=== PATIENT | female | born 1955 | race Caucasian/White ===

== ENCOUNTER → 2016-04-01 | Outpatient (REF) | payer OTHER | LOC: M SFHCWAGY 15:31 | PROVIDERS: ATTEND Nurse Practitioner Family | DX: R30.0 Dysuria (principal) ==

== ENCOUNTER → 2016-04-04 | Outpatient (CLI) | payer OTHER ==
--- NOTE | 2016-04-05 07:27 | REP ---
Clinical: Pelvic pain and dysuria . Technique: Transabdominal pelvic ultrasound followed by transvaginal examination for better evaluation of the endometrium and adnexa with color Doppler evaluation of the ovaries. Findings: Bladder is unremarkable and measures 10.3 x 6.3 x 3.9 cm . Heterogeneous anteverted uterus measures 6.1 x 2.6 x 4.8 cm . The endometrial complex measures 2.7 mm thickness. An anterior subserosal fibroid is identified measuring 1.5 cm maximal diameter and a posterior submucosal fibroid is identified measuring 2.4 cm maximal diameter. The ovaries are not definitively identified. However no pelvic fluid or adnexal mass lesions are appreciated. Impression: 1. Heterogeneous anteverted uterus with two fibroids as described above. 2. Ovaries are not definitively identified. No pelvic fluid or adnexal mass lesion noted.
--- NOTE | 2016-04-05 07:28 | REP ---
Clinical: Dysuria. Technique: Real time springer scale ultrasound examination of the bladder using curved array transducer. Findings: Bladder is grossly normal in appearance without obvious wall thickening or mass lesion. Prevoid bladder measures 10.1 x 5.1 x 5.2 cm (140 ml). Postvoid bladder measures 6.0 x 1.7 x 3.7 cm (20 ml) Postvoid residual equals 14% Impression: Normal appearance of the bladder. Postvoid residual equals 14% by current exam.
== END ==
LOC: M WHC 11:33
PROVIDERS: ATTEND Nurse Practitioner Family
DX: R30.0 Dysuria (principal)

== ENCOUNTER → 2016-11-02 | Outpatient (REF) | payer OTHER ==
[2016-11-02 12:48] LABS: ALBUMIN 3.9 GM/DL (3.2-5.2); ALKALINE PHOSPHATASE 46 U/L (45-117); ALT/SGPT 33 U/L (12-78); ANION GAP 8 MEQ/L (8-16); AST/SGOT 20 U/L (15-37); BILIRUBIN,TOTAL 0.5 MG/DL (0.2-1.0); BLOOD UREA NITROGEN 13 MG/DL (7-18); CALCIUM LEVEL 8.8 MG/DL (8.8-10.2); CARBON DIOXIDE LEVEL 30 MEQ/L (21-32); CHLORIDE LEVEL 106 MEQ/L (98-107); CHOLESTEROL LEVEL 224 MG/DL (<200); CREATININE FOR GFR 0.71 MG/DL (0.55-1.02); GLOMERULAR FILTRATION RATE > 60.0 (>45); GLUCOSE, FASTING 93 MG/DL (80-110); POTASSIUM SERUM 4.1 MEQ/L (3.5-5.1); SODIUM LEVEL 144 MEQ/L (136-145); TOTAL PROTEIN 6.9 GM/DL (6.4-8.2); TRIGLYCERIDES LEVEL 104 MG/DL (<150)
[2016-11-02 13:26] LABS: MEAN CORPUSCULAR HEMOGLOBIN 29.9 pg (27.0-33.0); MEAN CORPUSCULAR HGB CONC 33.4 g/dl (32.0-36.5); MEAN CORPUSCULAR VOLUME 89.5 fl (80.0-96.0); RED CELL DISTRIBUTION WIDTH 12.3 % (11.5-14.5); WHITE BLOOD COUNT 4.5 K/mm3 (4.0-10.0)
== END ==
LOC: M SFHCPLAZ 08:57
PROVIDERS: ATTEND Family Medicine
DX: Z00.00 Encounter for general adult medical examination without abnormal findings (principal)

== ENCOUNTER → 2016-11-02 | Outpatient (CLI) | payer OTHER ==
--- NOTE | 2016-11-02 09:20 | REPMRS ---
Patient History The patient states she had a clinical breast exam in 10/2016. Patient is postmenopausal. Family history of breast cancer in mother at age 69. Taking estrogen for 5 years. Digital Woman Screen Mammo: November 02, 2016 - Exam #: [id number] Bilateral CC and MLO view(s) were taken. Technologist: Loreta Brown, Technologist Prior study comparison: September 09, 2015, digital woman screen mammo performed at [facility]. 2013, digital bilateral screening mammo, performed at [facility]. FINDINGS: The breast tissue is heterogeneously dense. This may lower the sensitivity of mammography. There has been no change in the appearance of the mammogram from the prior studies. There is a moderate amount of residual fibroglandular tissue which is fairly symmetric. There is no interval development of dominant mass, areas of architectural distortion, or clustered microcalcification typical of malignancy. ASSESSMENT: BI-RADS/ACR category 1 mammogram. Negative. Recommendation Routine screening mammogram in 1 year (for women over age 40). This mammogram was interpreted with the aid of an FDA-approved computer-aided dectection system. Electronically Signed By: Kike Hernandes MD 11/02/16 [id number]
== END ==
LOC: M WHC 08:08
PROVIDERS: ATTEND Nurse Practitioner Women's Health
DX: Z12.31 Encounter for screening mammogram for malignant neoplasm of breast (principal)

== ENCOUNTER → 2017-03-22 | Outpatient (REF) | payer OTHER ==
[2017-03-22 15:35] LABS: BASO % 0.5 % (0.0-1.0); EOS # 0.1 10^3/uL (0.0-0.50); EOS % 1.5 % (0.0-3.0); HEMATOCRIT 37.9 % (36.0-47.0); HEMOGLOBIN 12.1 g/dl (12.0-16.0); IMMATURE GRANULOCYTE % 0.3 % (0-3.0); LYMPH # 0.5 10^3/uL (1.5-4.5); LYMPH % 8.8 % (24.0-44.0); MEAN CORPUSCULAR HEMOGLOBIN 28.9 pg (27.0-33.0); MEAN CORPUSCULAR HGB CONC 31.9 g/dl (32.0-36.5); MEAN CORPUSCULAR VOLUME 90.7 fl (80.0-96.0); MONO # 0.6 10^3/uL (0.0-0.8); NEUTROPHILS # 4.9 10^3/uL (1.8-7.7); NEUTROPHILS % 79.9 % (36.0-66.0); PLATELET COUNT, AUTOMATED 212 10^3/uL (150-450); RED BLOOD COUNT 4.18 10^6/uL (4.00-5.40); RED CELL DISTRIBUTION WIDTH 12.4 % (11.5-14.5); WHITE BLOOD COUNT 6.1 10^3/uL (4.0-10.0)
== END ==
LOC: M SFHCPLAZ 12:23
DX: J06.9 Acute upper respiratory infection, unspecified (principal)

== ENCOUNTER → 2017-10-20 | Outpatient (REF) | payer OTHER | LOC: M SFHCPLAZ 09:26 | DX: Z13.1 Encounter for screening for diabetes mellitus (principal); Z13.220 Encounter for screening for lipoid disorders ==

== ENCOUNTER → 2017-11-03 | Outpatient (REF) | payer OTHER ==
[2017-11-03 13:51] LABS: ANION GAP 11 MEQ/L (8-16); BLOOD UREA NITROGEN 13 MG/DL (7-18); CALCIUM LEVEL 8.8 MG/DL (8.8-10.2); CARBON DIOXIDE LEVEL 26 MEQ/L (21-32); CHLORIDE LEVEL 105 MEQ/L (98-107); CHOLESTEROL LEVEL 238 MG/DL (<200); CHOLESTEROL RISK RATIO 4.327 (<5); CREATININE FOR GFR 0.84 MG/DL (0.55-1.30); GLOMERULAR FILTRATION RATE > 60.0 (>45); GLUCOSE, FASTING 97 MG/DL (70-100); HDL CHOLESTEROL 55 MG/DL (>40); LDL CHOLESTEROL 166 MG/DL (<100); NON-HDL-C 183 MG/DL; SODIUM LEVEL 142 MEQ/L (136-145); TRIGLYCERIDES LEVEL 83 MG/DL (<150)
[2017-11-03 14:42] LABS: ESTIMATED AVERAGE GLUCOSE 120 MG/DL (60-110); HEMOGLOBIN A1c 5.8 %
== END ==
LOC: M LABDRAW1 09:40
DX: Z13.1 Encounter for screening for diabetes mellitus (principal); Z13.220 Encounter for screening for lipoid disorders

== ENCOUNTER → 2018-03-21 | Outpatient (CLI) | payer OTHER ==
--- NOTE | 2018-03-21 11:12 | REPMRS ---
Patient History The patient states she had a clinical breast exam in 02/2018. Patient is postmenopausal. Family history of breast cancer at age 69 in mother, pancreatic cancer at age 50 or over in maternal grandmother. Taking estrogen for 6 years 6 months. Digital Woman Screen Mammo: March 21, 2018 - Exam #: [id number] Bilateral CC and MLO view(s) were taken. Technologist: Loreta Brown, Technologist Prior study comparison: November 02, 2016, digital woman screen mammo performed at [facility]. September 09, 2015, digital woman screen mammo performed at [facility]. August 05, 2014, bilateral digital woman screen mammo, performed at [facility]. FINDINGS: The breast tissue is heterogeneously dense. This may lower the sensitivity of mammography. There is a moderate amount of heterogeneously dense fibroglandular tissue which is fairly symmetric. There is no interval development of dominant mass, architectural distortion, or clustered microcalcification typical of malignancy. There has been no change in the appearance of the mammogram from the prior studies. 3-D tomosynthesis shows no additional findings. Assessment: BI-RADS/ACR category 1 mammogram. Negative Mammogram. Recommendation Routine screening mammogram of both breasts in 1 year (for women over age 40). This patient's Lifetime Breast Cancer RIsk is estimated at 16.2 %. This mammogram was interpreted with the aid of an FDA-approved computer-aided dectection system. Electronically Signed By: Bob Hutchison MD 03/21/18 [id number]
== END ==
LOC: M WHC 08:08
PROVIDERS: ATTEND Nurse Practitioner Women's Health
DX: Z12.31 Encounter for screening mammogram for malignant neoplasm of breast (principal)

== ENCOUNTER → 2018-04-23 | Outpatient (REF) | payer OTHER | LOC: M SFHCWAGY 08:51 | PROVIDERS: ATTEND Nurse Practitioner Women's Health | DX: Z12.4 Encounter for screening for malignant neoplasm of cervix (principal) ==

== ENCOUNTER → 2019-03-14 | Outpatient (REF) | payer OTHER ==
[2019-03-14 10:43] LABS: BASO % 0.8 % (0.0-1.0); EOS # 0.2 10^3/uL (0.0-0.5); EOS % 5.1 % (0.0-3.0); HEMOGLOBIN 12.3 g/dl (12.0-15.5); LYMPH # 1.4 10^3/uL (1.5-5.0); LYMPH % 36.8 % (24.0-44.0); MEAN CORPUSCULAR HEMOGLOBIN 29.2 pg (27.0-33.0); MEAN CORPUSCULAR HGB CONC 30.8 g/dl (32.0-36.5); MONO # 0.4 10^3/uL (0.0-0.8); MONO % 9.8 % (0.0-5.0); NEUTROPHILS # 1.8 10^3/uL (1.5-8.5); NEUTROPHILS % 47.2 % (36.0-66.0); PLATELET COUNT, AUTOMATED 248 10^3/uL (150-450); RED BLOOD COUNT 4.21 10^6/uL (4.00-5.40); WHITE BLOOD COUNT 3.9 10^3/uL (4.0-10.0)
[2019-03-14 10:48] LABS: ALBUMIN 3.8 GM/DL (3.2-5.2); ALT/SGPT 27 U/L (12-78); BILIRUBIN,TOTAL 0.4 MG/DL (0.2-1.0); BLOOD UREA NITROGEN 14 MG/DL (7-18); CALCIUM LEVEL 9.1 MG/DL (8.8-10.2); CARBON DIOXIDE LEVEL 32 MEQ/L (21-32); CHLORIDE LEVEL 105 MEQ/L (98-107); CHOLESTEROL LEVEL 248 MG/DL (<200); CHOLESTEROL RISK RATIO 4.769 (<5); CREATININE FOR GFR 0.73 MG/DL (0.55-1.30); FREE T4 0.86 NG/DL (0.76-1.46); GLOMERULAR FILTRATION RATE > 60.0 (>45); GLUCOSE, FASTING 99 MG/DL (70-100); HDL CHOLESTEROL 52 MG/DL (>40); LDL CHOLESTEROL 176 MG/DL (<100); NON-HDL-C 196 MG/DL; POTASSIUM SERUM 4.2 MEQ/L (3.5-5.1); SODIUM LEVEL 141 MEQ/L (136-145); TRIGLYCERIDES LEVEL 102 MG/DL (<150)
[2019-03-14 11:05] LABS: HEMOGLOBIN A1c 6.2 %
[2019-03-14 11:44] LABS: APPEARANCE, URINE CLEAR (CLEAR); BACTERIA, URINE AUTO NEGATIVE (NEGATIVE); BILIRUBIN, URINE AUTO NEGATIVE (NEGATIVE); BLOOD, URINE BLOOD NEGATIVE (NEGATIVE); COLOR, URINE YELLOW (YELLOW); GLUCOSE, URINE (UA) AUTO NEGATIVE (NEGATIVE); KETONE, URINE AUTO NEGATIVE (NEGATIVE); LEUKOCYTE ESTERASE, URINE AUTO NEGATIVE (NEGATIVE); MUCUS, URINE SMALL (NEGATIVE); NITRITE, URINE AUTO NEGATIVE (NEGATIVE); PROTEIN, URINE AUTO NEGATIVE (NEGATIVE); RBC, URINE AUTO 1 /HPF (0-3); SPECIFIC GRAVITY URINE AUTO 1.016 (1.002-1.035); SQUAMOUS EPITHELIAL CELL UR AU 0 /HPF (0-6); UROBILINOGEN, URINE AUTO 0.2 mg/dL (0.0-2.0); WBC, URINE AUTO 3 /HPF (0-3)
== END ==
LOC: M SFHCPLAZ 07:43
PROVIDERS: ATTEND Physician Assistant
DX: Z00.00 Encounter for general adult medical examination without abnormal findings (principal); Z13.29 Encounter for screening for other suspected endocrine disorder; R73.01 Impaired fasting glucose; Z13.220 Encounter for screening for lipoid disorders; R30.0 Dysuria

== ENCOUNTER → 2019-04-24 | Outpatient (CLI) | payer OTHER ==
--- NOTE | 2019-04-24 14:24 | REPMRS ---
Patient History The patient states she had a clinical breast exam in April 2019. Family history of breast cancer at age 69 in mother, pancreatic cancer at age 50 or over in maternal grandmother. Taking estrogen for 6 years 6 months. Digital Woman Screen Mammo: April 24, 2019 - Exam #: [id number] Bilateral CC and MLO view(s) were taken. Technologist: RT Randee Prior study comparison: March 21, 2018, bilateral digital woman screen mammo performed at [facility]. November 02, 2016, digital woman screen mammo performed at [facility]. September 09, 2015, digital woman screen mammo performed at [facility]. FINDINGS: The breast tissue is heterogeneously dense. This may lower the sensitivity of mammography. There is a moderate amount of heterogeneously dense fibroglandular tissue which is fairly symmetric. There is no interval development of dominant mass, architectural distortion, or grouped microcalcification typical of malignancy. There has been no change in the appearance of the mammogram from the prior studies. 3-D tomosynthesis shows no additional findings. Assessment: BI-RADS/ACR category 1 mammogram. Negative Mammogram. Recommendation Routine screening mammogram of both breasts in 1 year (for women over age 40). This patient's Lifetime Breast Cancer RIsk is estimated at 15.6 %. This mammogram was interpreted with the aid of an FDA-approved computer-aided dectection system. Electronically Signed By: Bob Hutchison MD 04/24/19 [id number]
== END ==
LOC: M WHC 11:08
PROVIDERS: ATTEND Nurse Practitioner Women's Health
DX: Z12.31 Encounter for screening mammogram for malignant neoplasm of breast (principal); Z80.3 Family history of malignant neoplasm of breast; Z79.899 Other long term (current) drug therapy

== ENCOUNTER → 2019-04-24 | Outpatient (CLI) | payer OTHER | LOC: M PLALAB 12:10 | PROVIDERS: ATTEND Nurse Practitioner Women's Health | DX: Z13.79 Encounter for other screening for genetic and chromosomal anomalies (principal); Z12.4 Encounter for screening for malignant neoplasm of cervix ==

== ENCOUNTER → 2019-07-11 | Outpatient (CLI) | payer OTHER ==
--- NOTE | 2019-07-11 20:50 | REP ---
Clinical: Diffuse abdominal pain. Technique: Real time springer scale ultrasound examination using curved array transducer. Findings: Liver, spleen, and pancreas are normal in contour, size, echogenicity without focal splenic, hepatic, or pancreatic lesion identified. The patient is known to be status post cholecystectomy. No intrahepatic biliary ductal dilatation is appreciated and the common bile duct measures 9 mm diameter. Bilateral kidneys are normal in reniform shape without hydronephrosis. Right kidney measures 9.6 x 4.2 x 4.3 cm. Left kidney measures 9.5 x 4.2 x 5.5 cm. Abdominal aorta appears normal and measures 2.0 cm maximal diameter. No ascites. Impression: 1. Prior cholecystectomy. 2. Normal complete abdominal ultrasound. Electronically Signed by Sebastian Gray MD 07/11/2019 08:41 P
== END ==
LOC: M RAD 08:22
PROVIDERS: ATTEND Physician Assistant
DX: R10.9 Unspecified abdominal pain (principal)

== ENCOUNTER 2019-08-02 14:19 | Emergency (ER) | payer OTHER ==
[~2019-08-02] VITALS: Ht 162.6 cm; Wt 66.7 kg
[2019-08-02] MEDS ORDERED: GI COCKTAIL 50ML BTL(HYOSCYAMINE/MAALOX/LIDOCAINE VISCOUS)(1:3:1) PO ONE (15:00)
[2019-08-02] MEDS ORDERED: DICYCLOMINE INJ 20MG/2ML (J0500) IM ONE (15:00)
[2019-08-02 15:15] LABS: BASO % 0.4 % (0.0-1.0); EOS # 0.1 10^3/uL (0.0-0.5); EOS % 1.9 % (0.0-3.0); HEMATOCRIT 36.7 % (36.0-47.0); LYMPH # 1.6 10^3/uL (1.5-5.0); LYMPH % 27.2 % (24.0-44.0); MEAN CORPUSCULAR HEMOGLOBIN 30.2 pg (27.0-33.0); MEAN CORPUSCULAR HGB CONC 32.7 g/dl (32.0-36.5); MEAN CORPUSCULAR VOLUME 92.4 fl (80.0-96.0); MONO # 0.4 10^3/uL (0.0-0.8); NEUTROPHILS # 3.6 10^3/uL (1.5-8.5); NEUTROPHILS % 63.3 % (36.0-66.0); PLATELET COUNT, AUTOMATED 227 10^3/uL (150-450); RED BLOOD COUNT 3.97 10^6/uL (4.00-5.40); WHITE BLOOD COUNT 5.7 10^3/uL (4.0-10.0)
[2019-08-02 15:35] LABS: BLOOD UREA NITROGEN 13 MG/DL (7-18); CALCIUM LEVEL 9.5 MG/DL (8.8-10.2); CARBON DIOXIDE LEVEL 29 MEQ/L (21-32); CHLORIDE LEVEL 104 MEQ/L (98-107); CREATININE FOR GFR 0.77 MG/DL (0.55-1.30); GLOMERULAR FILTRATION RATE > 60.0 (>45); GLUCOSE, FASTING 94 MG/DL (70-100); POTASSIUM SERUM 3.6 MEQ/L (3.5-5.1); SODIUM LEVEL 137 MEQ/L (136-145)
[2019-08-02 15:39] LABS: ALBUMIN 4.1 GM/DL (3.2-5.2); BILIRUBIN,DIRECT 0.1 MG/DL (0.0-0.2); BILIRUBIN,TOTAL 0.6 MG/DL (0.2-1.0); TOTAL PROTEIN 7.8 GM/DL (6.4-8.2)
--- NOTE | 2019-08-02 15:41 | REP ---
Portable chest x-ray: Single view. History: Chest pain. Comparison study: February 11, 2013. Findings: The lungs are symmetrically aerated and clear. EKG monitoring electrodes are seen. Surgical clips are noted right upper quadrant. Pleural angles are sharp. Very vasculature is not increased. Impression: No active disease. Electronically Signed by Wellington Hutchison MD 08/02/2019 03:33 P
[2019-08-02] MEDS: GASTROGRAFIN SOLUTION 30ML PO SCH ×2 (16:15→16:53)
[2019-08-02] MEDS ORDERED: ISOVUE-370 76% 100ML VIAL As Ordered ONE (16:59)
[2019-08-02] MEDS ORDERED: FLUO10CA16 (18:08)
[2019-08-02] MEDS ORDERED: OMEP-357 (18:08)
--- NOTE | 2019-08-02 18:10 | REPVR ---
PROCEDURE INFORMATION: Exam: CT Abdomen And Pelvis With Contrast Exam date and time: 08/02/2019 5:03 PM Age: 63 years old Clinical indication: Abdominal pain; Localized; Upper; Additional info: Upper abdominal pain; Colitis vs hiatal hernia TECHNIQUE: Imaging protocol: Computed tomography of the abdomen and pelvis with intravenous contrast. Radiation optimization: All CT scans at this facility use at least one of these dose optimization techniques: automated exposure control; mA and/or kV adjustment per patient size (includes targeted exams where dose is matched to clinical indication); or iterative reconstruction. Contrast material: ISOVUE 370; Contrast volume: 100 ml; Contrast route: INTRAVENOUS (IV); COMPARISON: BLADDER (LIMITED PELVIC) US 04/04/2016 1:25 PM FINDINGS: Mediastinal space: No hiatal hernia identified. Liver: There is hepatic steatosis. No focal hepatic lesion. Gallbladder and bile ducts: Status post cholecystectomy. The common bile duct is dilated measuring up to 11 mm. No obstructive calculus or lesion identified. No intrahepatic biliary ductal dilatation. Pancreas: The pancreas is normal. The pancreas is normal. Spleen: The spleen is normal. Adrenals: The adrenals are normal. Kidneys and ureters: The kidneys are normal.No hydronephrosis. Stomach and bowel: There is no bowel wall thickening. There is no bowel distension. No diverticula. Appendix: The appendix is well visualized and is normal. Intraperitoneal space: No free fluid or fluid collection. No free air. Vasculature: Unremarkable. No abdominal aortic aneurysm. Lymph nodes: Unremarkable. No enlarged lymph nodes. Bladder: The bladder is normal with no evidence of calculi. Reproductive: The uterus and adnexa are within normal limits. Bones/joints: Degenerative changes of the lumbar spine most advanced at L5-S1. No fracture. No focal osseous lesion. Soft tissues: Unremarkable. IMPRESSION: 1. Status post cholecystectomy with mild dilation of the common bile duct, 11 mm. No obstructive calculus or lesion. This is not unusual following cholecystectomy. 2. No acute inflammatory findings. Electronically signed by: Barrington Regan On 08/02/2019 18:10:22 PM
[2019-08-02 18:15] VITALS: BP 125/70
--- NOTE | 2019-08-03 08:04 | ECGEPIP ---
[facility] - ED Test Date: 2019-08-02 Pat Name: MARK CHAVEZ Department: Room: - Gender: Female Grinder Hand: : 1955 Requested By: Laura Scott Order Number: [id number] Reading MD: Laura Scott Measurements Intervals [place] Rate: 61 P: 41 IL: 168 QRS: -25 QRSD: 76 T: -3 QT: 396 QTc: 399 Interpretive Statements SINUS RHYTHM BORDERLINE LEFT AXIS DEVIATION ST DEVIATION AND MODERATE T-WAVE ABNORMALITY, CONSIDER ISCHEMIA NO PRIOR Electronically Signed on 08-03-2019 8:04:44 EDT by Laura Scott
--- NOTE | 2019-08-05 08:09 | ED PDOC ---
Post-Departure Follow-Up dr nolasco, dr white, judith andrew faxed fomral report of ct abd/p fo rfu Daniel Voss MD Aug 05, 2019 08:09
[2019-11-27] MEDS ORDERED: LEXA5TAB13 (11:12)
[2019-11-27] MEDS ORDERED: MULTCAP PO (11:18)
[2019-11-27] MEDS ORDERED: OXYC-1 PO (11:18)
[2019-11-27] MEDS ORDERED: PREV15TA2 PO (11:18)
== END 2019-08-02 18:40 | disposition home or self-care (01) ==
LOC: M ED 14:19
DX: R10.13 Epigastric pain (principal); Z88.2 Allergy status to sulfonamides; Z88.1 Allergy status to other antibiotic agents
CPT/HCPCS: 71045; 74177; 80048; 80076; 83690; 85025; 93005; 93041; 94760; 96372; 99285; J0500; Q9963; Q9967

== ENCOUNTER → 2019-11-28 | Outpatient (CLI) | payer OTHER ==
[~2019-11-28] MED LIST: FLUO10CA16; LEXA5TAB13; MULTCAP PO; OMEP-357; OXYC-1 PO; PREV15TA2 PO
== END ==
LOC: M LABSMTC 11:56
PROVIDERS: ATTEND Anesthesiology
DX: Z01.812 Encounter for preprocedural laboratory examination (principal); Z20.828 Contact with and (suspected) exposure to other viral communicable diseases
CPT/HCPCS: C9803; U0003

== ENCOUNTER 2019-12-03 10:19 | Day surgery (SDC) | payer OTHER ==
[~2019-12-03] VITALS: Ht 162.6 cm; Wt 65.7 kg
[~2019-12-03 10:19] MED LIST changes: +NS 1,000 ML IV ONE
[2019-12-03] MEDS ORDERED: propofoL 500 MG/50 ML VIAL As Ordered ONE (11:07)
[2019-12-03] MEDS ORDERED: LIDOCAINE 2% 100MG/5ML SDV (FOR ANES.) As Ordered ONE (11:07)
[2019-12-03] MEDS ORDERED: fentaNYL 100 MCG/2 ML INJECTION (J3010) As Ordered ONE (11:20)
--- NOTE | 2019-12-03 12:10 | ROOR ---
Patient Name: Shira Reagan Procedure Date: 12/03/2019 11:56 AM Date of : 1955 Age: 64 Room: [facility] Gender: Female Note Status: Finalized Procedure: Upper GI endoscopy Indications: Functional Dyspepsia, Heartburn Providers: Donaldo Shelton MD Referring MD: Eloisa Harvey Requesting Provider: Medicines: Monitored Anesthesia Care Complications: No immediate complications. Procedure: Pre-Anesthesia Assessment: - Prior to the procedure, a History and Physical was performed, and patient medications and allergies were reviewed. The patient is competent. The risks and benefits of the procedure and the sedation options and risks were discussed with the patient. All questions were answered and informed consent was obtained. Patient identification and proposed procedure were verified by the physician, the nurse and the anesthesiologist in the procedure room. Mental Status Examination: alert and oriented. Airway Examination: normal oropharyngeal airway and neck mobility. Respiratory Examination: clear to auscultation. CV Examination: normal. Prophylactic Antibiotics: The patient does not require prophylactic antibiotics. Prior Anticoagulants: The patient has taken no previous anticoagulant or antiplatelet agents. ASA Grade Assessment: II - A patient with mild systemic disease. After reviewing the risks and benefits, the patient was deemed in satisfactory condition to undergo the procedure. The anesthesia plan was to use monitored anesthesia care (MAC). Immediately prior to administration of medications, the patient was re-assessed for adequacy to receive sedatives. The heart rate, respiratory rate, oxygen saturations, blood pressure, adequacy of pulmonary ventilation, and response to care were monitored throughout the procedure. The physical status of the patient was re-assessed after the procedure. The Endoscope was introduced through the mouth, and advanced to the second part of duodenum. The upper GI endoscopy was accomplished without difficulty. The patient tolerated the procedure well. Findings: The examined esophagus was normal. The Z-line was regular and was found 36 cm from the incisors. Scattered mild inflammation characterized by erythema, friability and granularity was found in the gastric antrum. Biopsies were taken with a cold forceps for Helicobacter pylori testing. Verification of patient identification for the specimen was done by the physician and nurse using the patient's name, date and medical record number. Estimated blood loss was minimal. The duodenal bulb and second portion of the duodenum were normal. Biopsies for histology were taken with a cold forceps for evaluation of celiac disease. Impression: - Normal esophagus. - Z-line regular, 36 cm from the incisors. - Gastritis. Biopsied. - Normal duodenal bulb and second portion of the duodenum. Biopsied. Recommendation: - Patient has a contact number available for emergencies. The signs and symptoms of potential delayed complications were discussed with the patient. Return to normal activities tomorrow. Written discharge instructions were provided to the patient. - High fiber diet. - Continue present medications. - Await pathology results. - Follow an antireflux regimen. - Telephone GI clinic for pathology results in 2 weeks. - Return to primary care physician. Donaldo Shelton MD Donaldo Shelton MD 12/03/2019 12:10:16 PM Electronically signed by Donaldo Shelton MD Number of Addenda: 0 Note Initiated On: 12/03/2019 11:56 AM Estimated Blood Loss: Estimated blood loss: none.
[2019-12-03] MEDS ORDERED: ELEVIEW SUBMUCOSAL INJ 10ML AMP As Ordered ONE ×2 (12:22→12:52)
[2019-12-03 13:15] VITALS: BP 123/65
--- NOTE | 2019-12-03 14:06 | ROOR ---
Patient Name: Shira Reagan Procedure Date: 12/03/2019 11:58 AM Date of : 1955 Age: 64 Room: [facility] Gender: Female Note Status: Finalized Procedure: Colonoscopy Indications: Screening for colorectal malignant neoplasm Providers: Donaldo Shelton MD Referring MD: Eloisa Harvey Requesting Provider: Medicines: Monitored Anesthesia Care Complications: No immediate complications. Procedure: Pre-Anesthesia Assessment: - Prior to the procedure, a History and Physical was performed, and patient medications and allergies were reviewed. The patient is competent. The risks and benefits of the procedure and the sedation options and risks were discussed with the patient. All questions were answered and informed consent was obtained. Patient identification and proposed procedure were verified by the physician and the nurse in the procedure room. Mental Status Examination: alert and oriented. Airway Examination: normal oropharyngeal airway and neck mobility. Respiratory Examination: clear to auscultation. CV Examination: normal. Prophylactic Antibiotics: The patient does not require prophylactic antibiotics. Prior Anticoagulants: The patient has taken no previous anticoagulant or antiplatelet agents. ASA Grade Assessment: II - A patient with mild systemic disease. After reviewing the risks and benefits, the patient was deemed in satisfactory condition to undergo the procedure. The anesthesia plan was to use monitored anesthesia care (MAC). Immediately prior to administration of medications, the patient was re-assessed for adequacy to receive sedatives. The heart rate, respiratory rate, oxygen saturations, blood pressure, adequacy of pulmonary ventilation, and response to care were monitored throughout the procedure. The physical status of the patient was re-assessed after the procedure. The Colonoscope was introduced through the anus and advanced to the terminal ileum, with identification of the appendiceal orifice and IC valve. The colonoscopy was performed without difficulty. The patient tolerated the procedure well. The quality of the bowel preparation was good. The terminal ileum, ileocecal valve, appendiceal orifice, and rectum were photographed. Scope insertion time was 3 minutes. Scope withdrawal time was 15 minutes. The total duration of the procedure was 25 minutes. Findings: The perianal and digital rectal examinations were normal. The terminal ileum appeared normal. Two carpet-like, flat and sessile polyps were found in the ascending colon and cecum. The polyps were 10 to 20 mm in size. Preparations were made for mucosal resection. Chromoscopy with methylene blue was done to gwen the borders of the lesion. 6 mL of Eleview was injected with partial lift of the lesion from the muscularis propria. Snare mucosal resection with suction (via the working channel) retrieval was performed. A 30 mm area was resected. Resection and retrieval were complete. There was no bleeding at the end of the procedure. To close a defect after mucosal resection, three hemostatic clips were successfully placed. There was no bleeding at the end of the procedure. Two sessile polyps were found in the descending colon and transverse colon. The polyps were 4 to 5 mm in size. These polyps were removed with a cold snare. Resection and retrieval were complete. Verification of patient identification for the specimen was done by the physician and nurse using the patient's name, date and medical record number. Estimated blood loss was minimal. Non-bleeding external and internal hemorrhoids were found during retroflexion. The hemorrhoids were medium-sized. Impression: - The examined portion of the ileum was normal. - Two 10 to 20 mm polyps in the ascending colon and in the cecum, removed with mucosal resection. Resected and retrieved. Clips were placed. - Two 4 to 5 mm polyps in the descending colon and in the transverse colon, removed with a cold snare. Resected and retrieved. - Non-bleeding external and internal hemorrhoids. - Mucosal resection was performed. Resection and retrieval were complete. Recommendation: - Patient has a contact number available for emergencies. The signs and symptoms of potential delayed complications were discussed with the patient. Return to normal activities tomorrow. Written discharge instructions were provided to the patient. - Clear liquid diet for 1 day, then advance as tolerated to high fiber diet. - Continue present medications. - Miralax 1 capful (17 grams) in 8 ounces of water PO daily for 3 days. - Await pathology results. - Repeat colonoscopy in 1 year for surveillance based on pathology results. - Telephone GI clinic for pathology results in 2 weeks. - Return to primary care physician. Donaldo Shelton MD Donaldo Shelton MD 12/03/2019 2:05:35 PM Electronically signed by Donaldo Shelton MD Number of Addenda: 0 Note Initiated On: 12/03/2019 11:58 AM Estimated Blood Loss: Estimated blood loss was minimal.
== END 2019-12-03 13:28 | disposition home or self-care (01) ==
LOC: M OPP 10:19
PROVIDERS: ATTEND Internal Medicine Gastroenterology
DX: Z12.11 Encounter for screening for malignant neoplasm of colon (principal); K63.5 Polyp of colon; K64.8 Other hemorrhoids; K29.70 Gastritis, unspecified, without bleeding; K30 Functional dyspepsia; Z79.899 Other long term (current) drug therapy; Z88.1 Allergy status to other antibiotic agents; Z88.2 Allergy status to sulfonamides
CPT/HCPCS: 43239; 45380; 45385; 88305; J3010

== ENCOUNTER → 2020-03-31 | Outpatient (REF) | payer OTHER ==
[~2020-03-31] MED LIST changes: -NS 1,000 ML IV ONE
[2020-03-31 13:40] LABS: HEMATOCRIT 36.3 % (36.0-47.0); HEMOGLOBIN 11.4 g/dl (12.0-15.5); MEAN CORPUSCULAR HEMOGLOBIN 29.2 pg (27.0-33.0); MEAN CORPUSCULAR HGB CONC 31.4 g/dl (32.0-36.5); MEAN CORPUSCULAR VOLUME 93.1 fl (80.0-96.0); PLATELET COUNT, AUTOMATED 247 10^3/uL (150-450); WHITE BLOOD COUNT 3.5 10^3/uL (4.0-10.0)
[2020-03-31 14:02] LABS: ERYTHROCYTE SEDIMENTATION RATE 21 mm/hr (0-30)
[2020-03-31 14:04] LABS: HEMOGLOBIN A1c 5.6 %
[2020-03-31 14:15] LABS: ALBUMIN 3.9 GM/DL (3.2-5.2); ALT/SGPT 25 U/L (12-78); BILIRUBIN,TOTAL 0.3 MG/DL (0.2-1.0); BLOOD UREA NITROGEN 13 MG/DL (7-18); C REACTIVE PROTEIN QUANTITATIV 0.34 MG/DL (0.00-0.30); CALCIUM LEVEL 9.4 MG/DL (8.8-10.2); CARBON DIOXIDE LEVEL 31 MEQ/L (21-32); CHLORIDE LEVEL 105 MEQ/L (98-107); CHOLESTEROL LEVEL 219 MG/DL (<200); CHOLESTEROL RISK RATIO 3.842 (<5); CREATININE FOR GFR 0.73 MG/DL (0.55-1.30); GLOMERULAR FILTRATION RATE > 60.0 (>45); GLUCOSE, FASTING 91 MG/DL (70-100); HDL CHOLESTEROL 57 MG/DL (>40); LDL CHOLESTEROL 150 MG/DL (<100); NON-HDL-C 162 MG/DL; POTASSIUM SERUM 4.3 MEQ/L (3.5-5.1); RHEUMATOID FACTOR QUANT < 10.0 IU/ML (<15.0); SODIUM LEVEL 142 MEQ/L (136-145); TOTAL PROTEIN 7.1 GM/DL (6.4-8.2); TRIGLYCERIDES LEVEL 62 MG/DL (<150)
[2020-04-01 23:07] LABS: ANTINUCLEAR ANTIBODIES DIRECT Negative (Negative); CYCLIC CITRULLINATED PEPTIDE 4 units (0-19)
== END ==
LOC: M PLALAB 13:17
PROVIDERS: ATTEND Physician Assistant
DX: Z00.00 Encounter for general adult medical examination without abnormal findings (principal); R73.01 Impaired fasting glucose; E78.2 Mixed hyperlipidemia; M13.0 Polyarthritis, unspecified; R79.89 Other specified abnormal findings of blood chemistry

== ENCOUNTER → 2020-04-28 | Outpatient (CLI) | payer OTHER ==
--- NOTE | 2020-04-28 15:39 | REPMRS ---
Patient History The patient states she had a clinical breast exam in April 2020. Patient is postmenopausal. Family history of breast cancer at age 69 in mother, pancreatic cancer at age 50 or over in maternal grandmother. Took estrogen for 6 years 6 months. Digital Woman Screen Mammo: April 28, 2020 - Exam #: [id number] Bilateral CC and MLO view(s) were taken. Technologist: Anny Wolf Technologist Prior study comparison: April 24, 2019, bilateral digital woman screen mammo performed at [facility]. March 21, 2018, bilateral digital woman screen mammo performed at [facility]. November 02, 2016, digital woman screen mammo performed at [facility]. FINDINGS: There are scattered fibroglandular densities. The Volpara volumetric breast density category is: B. There is a moderate amount of residual fibroglandular tissue which is fairly symmetric. There is no interval development of dominant mass, architectural distortion, or grouped microcalcification typical of malignancy. There has been no change in the appearance of the mammogram from the prior studies. 3-D tomosynthesis shows no additional findings. Assessment: BI-RADS/ACR category 1 mammogram. Negative Mammogram. Recommendation Routine screening mammogram of both breasts in 1 year (for women over age 40). This patient's [facility] Lifetime Breast Cancer RIsk is estimated at 15.1 %. This mammogram was interpreted with the aid of an FDA-approved computer-aided dectection system. Electronically Signed By: Bob Hutchison MD 04/28/20 [id number]
== END ==
LOC: M WHC 13:51
PROVIDERS: ATTEND Nurse Practitioner Women's Health
DX: Z12.31 Encounter for screening mammogram for malignant neoplasm of breast (principal); Z80.3 Family history of malignant neoplasm of breast

== ENCOUNTER → 2020-04-28 | Outpatient (REF) | payer OTHER | LOC: M SFHCWAGY 18:57 | PROVIDERS: ATTEND Nurse Practitioner Women's Health | DX: Z12.4 Encounter for screening for malignant neoplasm of cervix (principal) ==

== ENCOUNTER → 2020-12-17 | Outpatient (CLI) | payer OTHER ==
[2020-12-17 14:18] LABS: CHOLESTEROL RISK RATIO 3.232 (<5)
== END ==
LOC: M PLALAB 09:33
PROVIDERS: ATTEND Internal Medicine Cardiovascular Disease
DX: E78.00 Pure hypercholesterolemia, unspecified (principal)

== ENCOUNTER → 2021-05-05 | Outpatient (CLI) | payer OTHER ==
[~2021-05-05] MED LIST changes: -FLUO10CA16; +FLUO10CA18
[2021-05-05 15:28] LABS: HEMATOCRIT 35.1 % (36.0-47.0); HEMOGLOBIN 11.5 g/dl (12.0-15.5); MEAN CORPUSCULAR HEMOGLOBIN 29.6 pg (27.0-33.0); MEAN CORPUSCULAR HGB CONC 32.8 g/dl (32.0-36.5); MEAN CORPUSCULAR VOLUME 90.5 fl (80.0-96.0); PLATELET COUNT, AUTOMATED 227 10^3/uL (150-450); RED BLOOD COUNT 3.88 10^6/uL (4.00-5.40); WHITE BLOOD COUNT 5.3 10^3/uL (4.0-10.0)
[2021-05-05 16:01] LABS: ALBUMIN 4.3 GM/DL (3.2-5.2); ALT/SGPT 45 U/L (12-78); BILIRUBIN,TOTAL 0.4 MG/DL (0.2-1.0); BLOOD UREA NITROGEN 14 MG/DL (7-18); CALCIUM LEVEL 9.2 MG/DL (8.8-10.2); CARBON DIOXIDE LEVEL 30 MEQ/L (21-32); CHLORIDE LEVEL 107 MEQ/L (98-107); CHOLESTEROL LEVEL 133 MG/DL (<200); CHOLESTEROL RISK RATIO 2.714 (<5); CREATININE FOR GFR 0.65 MG/DL (0.55-1.30); FERRITIN 141 NG/ML (8-252); FREE T4 1.13 NG/DL (0.76-1.46); GLOMERULAR FILTRATION RATE > 60.0 (>45); GLUCOSE, FASTING 91 MG/DL (70-100); HDL CHOLESTEROL 49 MG/DL (>40); LDL CHOLESTEROL 69 MG/DL (<100); LIPASE 180 U/L (73-393); NON-HDL-C 84 MG/DL; SODIUM LEVEL 142 MEQ/L (136-145); TOTAL PROTEIN 7.1 GM/DL (6.4-8.2); TRIGLYCERIDES LEVEL 75 MG/DL (<150)
[2021-05-05 16:02] LABS: TOTAL 25(OH) VITAMIN D 29.8 NG/ML (30.0-100.0); VITAMIN B12 LEVEL 623 PG/ML (247-911)
[2021-05-05 16:03] LABS: FOLATE > 24.0 NG/ML (>5.4)
== END ==
LOC: M PLALAB 14:08
PROVIDERS: ATTEND Internal Medicine Hematology
DX: F41.9 Anxiety disorder, unspecified (principal)

== ENCOUNTER → 2021-05-06 | Outpatient (REF) | payer OTHER | LOC: M SFHCPLAZ 16:50 | PROVIDERS: ATTEND Internal Medicine Hematology | DX: F41.9 Anxiety disorder, unspecified (principal) ==

== ENCOUNTER 2021-05-25 09:05 | Day surgery (SDC) | payer OTHER ==
[~2021-05-25] VITALS: Ht 162.6 cm; Wt 66.4 kg
[~2021-05-25 09:05] MED LIST changes: +ALPR0.25 PO; +BAYE81TA10 PO; -FLUO10CA18; +FLUO10CA18 PO; +NS 1,000 ML IV ONE; +OMEP-173 PO; +SIMV20TA22 PO
[2021-05-25] MEDS ORDERED: propofoL 500 MG/50 ML VIAL As Ordered ONE (09:35)
[2021-05-25] MEDS ORDERED: fentaNYL 100 MCG/2 ML INJECTION As Ordered ONE (09:35)
[2021-05-25] MEDS ORDERED: LIDOCAINE 2% 100MG/5ML SDV (FOR ANES.) As Ordered ONE (09:35)
[2021-05-25 11:27] VITALS: BP 114/76
== END 2021-05-25 11:40 | disposition home or self-care (01) ==
LOC: M OPP 09:05
PROVIDERS: ATTEND Internal Medicine Gastroenterology
DX: K63.5 Polyp of colon (principal); Z86.010 Personal history of colon polyps; Z09 Encounter for follow-up examination after completed treatment for conditions other than malignant neoplasm; Z80.0 Family history of malignant neoplasm of digestive organs; K64.8 Other hemorrhoids; K44.9 Diaphragmatic hernia without obstruction or gangrene; K29.70 Gastritis, unspecified, without bleeding; K31.7 Polyp of stomach and duodenum; R10.13 Epigastric pain; Z79.82 Long term (current) use of aspirin; Z79.899 Other long term (current) drug therapy; Z88.0 Allergy status to penicillin; Z88.2 Allergy status to sulfonamides; Z80.3 Family history of malignant neoplasm of breast; Z87.891 Personal history of nicotine dependence
CPT/HCPCS: 43239; 45380; 45385; 88305; J3010

== ENCOUNTER → 2021-12-21 | Outpatient (CLI) | payer MEDICARE ==
[~2021-12-21] MED LIST changes: -NS 1,000 ML IV ONE
== END ==
LOC: M WHC 12:40
PROVIDERS: ATTEND Obstetrics & Gynecology
DX: Z12.31 Encounter for screening mammogram for malignant neoplasm of breast (principal); Z13.820 Encounter for screening for osteoporosis; M85.851 Other specified disorders of bone density and structure, right thigh; M85.852 Other specified disorders of bone density and structure, left thigh; M85.88 Other specified disorders of bone density and structure, other site

== ENCOUNTER → 2021-12-21 | Outpatient (CLI) | payer MEDICARE ==
[2021-12-21 16:00] LABS: HEMATOCRIT 37.3 % (36.0-47.0); HEMOGLOBIN 11.9 g/dl (12.0-15.5); MEAN CORPUSCULAR HEMOGLOBIN 29.8 pg (27.0-33.0); MEAN CORPUSCULAR HGB CONC 31.9 g/dl (32.0-36.5); MEAN CORPUSCULAR VOLUME 93.3 fl (80.0-96.0); PLATELET COUNT, AUTOMATED 207 10^3/uL (150-450); WHITE BLOOD COUNT 4.5 10^3/uL (4.0-10.0)
[2021-12-21 17:05] LABS: ALT/SGPT 30 U/L (12-78); BILIRUBIN,TOTAL 0.3 MG/DL (0.2-1.0); BLOOD UREA NITROGEN 9 MG/DL (7-18); CALCIUM LEVEL 9.3 MG/DL (8.8-10.2); CARBON DIOXIDE LEVEL 31 MEQ/L (21-32); CHLORIDE LEVEL 105 MEQ/L (98-107); CREATININE FOR GFR 0.75 MG/DL (0.55-1.30); GLOMERULAR FILTRATION RATE > 60.0 (>45); GLUCOSE, FASTING 107 MG/DL (70-100); POTASSIUM SERUM 3.9 MEQ/L (3.5-5.1); SODIUM LEVEL 138 MEQ/L (136-145); TOTAL PROTEIN 7.2 GM/DL (6.4-8.2)
[2021-12-21 18:15] LABS: TOTAL 25(OH) VITAMIN D 31.3 NG/ML (30.0-100.0)
== END ==
LOC: M PLALAB 13:41
PROVIDERS: ATTEND Internal Medicine Hematology
DX: E78.2 Mixed hyperlipidemia (principal); Z79.899 Other long term (current) drug therapy

== ENCOUNTER → 2022-03-03 | Outpatient (CLI) | payer BC, MEDICARE | LOC: M PLAIMG 14:26 | PROVIDERS: ATTEND Physician Assistant | DX: R05.3 Chronic cough (principal) ==

== ENCOUNTER → 2023-02-21 | Outpatient (CLI) | payer MEDICARE ==
[2023-02-21 16:07] LABS: EOS # 0.2 10^3/uL (0.0-0.5)
== END ==
LOC: M PLALAB 12:21
PROVIDERS: ATTEND Internal Medicine Pulmonary Disease
DX: R05.3 Chronic cough (principal)

== ENCOUNTER → 2023-05-01 | Outpatient (REF) | payer MEDICARE | LOC: M PLALAB 16:30 | PROVIDERS: ATTEND Obstetrics & Gynecology | DX: Z12.72 Encounter for screening for malignant neoplasm of vagina (principal) | CPT/HCPCS: 87624; G0123 ==

== ENCOUNTER → 2023-05-01 | Outpatient (CLI) | payer MEDICARE | LOC: M WHC 10:31 | PROVIDERS: ATTEND Obstetrics & Gynecology | DX: Z12.31 Encounter for screening mammogram for malignant neoplasm of breast (principal) ==

== ENCOUNTER → 2023-07-17 | Outpatient (CLI) | payer MEDICARE ==
[~2023-07-17] MED LIST changes: +FLUO-290 PO; -FLUO10CA18 PO
== END ==
LOC: M RAD 12:36
PROVIDERS: ATTEND Internal Medicine Pulmonary Disease
DX: R91.8 Other nonspecific abnormal finding of lung field (principal)

== ENCOUNTER → 2024-05-08 | Outpatient (CLI) | payer MEDICARE | LOC: M PLAIMG 11:06 | PROVIDERS: ATTEND Family Medicine | DX: R51.9 Headache, unspecified (principal) ==

== ENCOUNTER → 2024-08-15 | Outpatient (CLI) | payer MEDICARE | LOC: M RAD 16:43 | PROVIDERS: ATTEND Internal Medicine Pulmonary Disease | DX: R91.8 Other nonspecific abnormal finding of lung field (principal); J98.4 Other disorders of lung ==